=== PATIENT | female | born 1980 | race Caucasian/White ===

== ENCOUNTER 2017-10-19 16:27 | Emergency (ER) | payer OTHER ==
[2017-10-19] MEDS ORDERED: SOD CHLORIDE 0.9% 1,000 ML IV (17:12)
[2017-10-19] MEDS ORDERED: LIDOCAINE/MYLANTA 40 ML BTL PO (17:12)
[2017-10-19] MEDS ORDERED: FAMOTIDINE 20 MG INJ IV (17:12)
[2017-10-19] MEDS ORDERED: ONDANSETRON 4 MG INJ IV (17:12)
== END 2017-10-19 17:45 | disposition home or self-care (01) ==
LOC: FTE 16:27
DX: R19.7 Diarrhea, unspecified (principal); R11.2 Nausea with vomiting, unspecified
CPT/HCPCS: 99283; J7030

== ENCOUNTER 2018-03-25 23:50 | Emergency (ER) | payer OTHER | END 2018-03-26 04:30 | disposition home or self-care (01) | LOC: FTE 23:50 | DX: F41.9 Anxiety disorder, unspecified (principal); I10 Essential (primary) hypertension | CPT/HCPCS: 93005; 99283-25 ==

== ENCOUNTER 2018-07-03 20:14 | Emergency (ER) | payer OTHER ==
[2018-07-03] MEDS: ACETAMINOPHEN 325 MG TAB PO (23:16)
[2018-07-03 23:27] LABS: ADD MAN DIFF? NO
[2018-07-03 23:28] LABS: BASOPHILS % 0.4 % (0.0-2.0); EOSINOPHILS # 0.2 10^3/ul (0.0-0.5); EOSINOPHILS % 1.6 % (0.0-7.0); HEMOGLOBIN 12.7 g/dl (12.0-16.0); LYMPHOCYTES # 2.5 10^3/ul (0.8-2.9); LYMPHOCYTES % 23.4 % (15.0-51.0); MEAN CORPUSCULAR HEMOGLOBIN 30.9 pg (29.0-33.0); MEAN CORPUSCULAR HGB CONC 33.4 g/dl (32.0-37.0); MEAN CORPUSCULAR VOLUME 92.5 fl (82.0-101.0); MEAN PLATELET VOLUME 9.3 fl (7.4-10.4); MONOCYTE # 0.7 10^3/ul (0.3-0.9); MONOCYTES % 6.7 % (0.0-11.0); NEUTROPHIL # 7.1 10^3/ul (1.6-7.5); NEUTROPHILS % 67.3 % (39.0-77.0); PLATELET COUNT 229 10^3/UL (140-415); RED BLOOD COUNT 4.11 10^6/ul (4.20-5.40)
[2018-07-03 23:28] LABS: WHITE BLOOD COUNT 10.6 10^3/ul (4.8-10.8)
[2018-07-03 23:47] LABS: ADD UMIC YES; UR ASCORBIC ACID NEGATIVE (NEGATIVE); UR BILIRUBIN (Dip) NEGATIVE (NEGATIVE); UR BLOOD (Dip) 1+ mg/dL (NEGATIVE); UR CLARITY CLOUDY (CLEAR); UR COLOR YELLOW (YELLOW); UR GLUCOSE (Dip) NEGATIVE (NEGATIVE); UR KETONES (Dip) NEGATIVE (NEGATIVE); UR LEUKOCYTE ESTERASE (Dip) 1+ Leu/ul (NEGATIVE); UR MUCUS FEW /HPF (NONE SEEN); UR NITRITE (Dip) NEGATIVE (NEGATIVE); UR RBC 4 /HPF (0-5); UR SPECIFIC GRAVITY (Dip) 1.021 (1.003-1.030); UR SQUAMOUS EPITHELIAL CELL MANY /HPF (FEW); UR TOTAL PROTEIN (Dip) NEGATIVE (NEGATIVE); UR UROBILINOGEN (Dip) NEGATIVE (NEGATIVE); UR WBC 53 /HPF (0-5)
[2018-07-03 23:49] LABS: ALANINE AMINOTRANSFERASE 15 IU/L (13-69); ALBUMIN 4.3 g/dl (3.3-4.9); ALBUMIN/GLOBULIN RATIO 1.43; ALKALINE PHOSPHATASE 56 IU/L (42-121); ANION GAP 12 (5-13); ASPARTATE AMINO TRANSFERASE 14 IU/L (15-46); BILIRUBIN,INDIRECT 0.4 mg/dl (0-1.1); BILIRUBIN,TOTAL 0.4 mg/dl (0.2-1.3); BLOOD UREA NITROGEN 10 mg/dl (7-20); CALCIUM 9.4 mg/dl (8.4-10.2); CARBON DIOXIDE 27 mmol/L (21-31); CHLORIDE 101 mmol/L (97-110); CREATININE 0.48 mg/dl (0.44-1.00); Estimated GFR > 60 mL/min (>60); GLUCOSE 98 mg/dl (70-220); LIPASE 48 U/L (23-300); POTASSIUM 4.1 mmol/L (3.5-5.1); SODIUM 140 mmol/L (135-144); TOTAL PROTEIN 7.3 g/dl (6.1-8.1)
== END 2018-07-04 01:21 | disposition home or self-care (01) ==
LOC: FTE 07-04 01:21
DX: O23.41 Unspecified infection of urinary tract in pregnancy, first trimester (principal); O10.011 Pre-existing essential hypertension complicating pregnancy, first trimester; R10.2 Pelvic and perineal pain; Z3A.11 11 weeks gestation of pregnancy
CPT/HCPCS: 36415; 76801; 80053; 81001; 83690; 84702; 85025; 86900; 86901; 87086; 99284-25

== ENCOUNTER 2018-10-25 03:53 | Inpatient (IN) | payer OTHER ==
[2018-10-25 04:36] LABS: ADD MAN DIFF? NO
[2018-10-25 04:40] LABS: BASOPHILS % 0.2 % (0.0-2.0); EOSINOPHILS # 0.1 10^3/ul (0.0-0.5); HEMATOCRIT 33.7 % (37.0-47.0); HEMOGLOBIN 11.4 g/dl (12.0-16.0); LYMPHOCYTES # 2.1 10^3/ul (0.8-2.9); MEAN CORPUSCULAR HGB CONC 33.8 g/dl (32.0-37.0); MEAN CORPUSCULAR VOLUME 94.7 fl (82.0-101.0); MEAN PLATELET VOLUME 9.7 fl (7.4-10.4); MONOCYTE # 0.8 10^3/ul (0.3-0.9); MONOCYTES % 6.3 % (0.0-11.0); NEUTROPHIL # 8.9 10^3/ul (1.6-7.5); NEUTROPHILS % 74.2 % (39.0-77.0); PLATELET COUNT 195 10^3/UL (140-415); RED BLOOD COUNT 3.56 10^6/ul (4.20-5.40); RED CELL DISTRIBUTION WIDTH 13.4 % (11.5-14.5)
[2018-10-25 04:55] LABS: ADD UMIC YES; UR ASCORBIC ACID 40 mg/dL (NEGATIVE); UR BACTERIA MANY /HPF (NONE SEEN); UR BILIRUBIN (Dip) NEGATIVE (NEGATIVE); UR BLOOD (Dip) NEGATIVE (NEGATIVE); UR CALCIUM OXALATE CRYSTAL MODERATE /HPF (NONE SEEN); UR CLARITY CLOUDY (CLEAR); UR COLOR AMBER (YELLOW); UR GLUCOSE (Dip) NEGATIVE (NEGATIVE); UR KETONES (Dip) 1+ mg/dL (NEGATIVE); UR LEUKOCYTE ESTERASE (Dip) NEGATIVE Leu/ul (NEGATIVE); UR MUCUS FEW /HPF (NONE SEEN); UR NITRITE (Dip) NEGATIVE (NEGATIVE); UR RBC 4 /HPF (0-5); UR SPECIFIC GRAVITY (Dip) 1.036 (1.003-1.030); UR SQUAMOUS EPITHELIAL CELL MANY /HPF (FEW); UR TOTAL PROTEIN (Dip) 1+ mg/dl (NEGATIVE); UR UROBILINOGEN (Dip) NEGATIVE (NEGATIVE); UR WBC 7 /HPF (0-5)
[2018-10-25] MEDS: LACTATED RINGER'S 1,000 ML IV ×3 (06:49→16:21)
[2018-10-25] MEDS: CEFAZOLIN 2 GM/50 ML (PMX) 50 ML IVPB ×3 (07:02→22:06)
[2018-10-25] MEDS: HYDROCODONE/APAP (5/325) TAB PO (07:02)
[2018-10-25] MEDS ORDERED: BUTORPHANOL 2 MG INJ IV (08:30)
[2018-10-25] MEDS: PRENATAL VITAMIN PO (09:56)
[2018-10-25] MEDS: FERROUS SULFATE (EC) 325 MG TAB PO (09:56)
[2018-10-25] MEDS: BETAMET NA PHOS/AC(6 MG/ML) 2 ML INJ SYG IM (10:16)
[2018-10-26] MEDS: CEFAZOLIN 2 GM/50 ML (PMX) 50 ML IVPB (06:13)
[2018-10-26] MEDS: LACTATED RINGER'S 1,000 ML IV ×2 (07:42)
[2018-10-26] MEDS: FERROUS SULFATE (EC) 325 MG TAB PO (09:25)
[2018-10-26] MEDS: PRENATAL VITAMIN PO (09:25)
[2018-10-26 10:00] LABS: ADD MAN DIFF? NO; BASOPHILS % 0.2 % (0.0-2.0); EOSINOPHILS # 0.1 10^3/ul (0.0-0.5); EOSINOPHILS % 0.5 % (0.0-7.0); HEMATOCRIT 34.1 % (37.0-47.0); HEMOGLOBIN 11.4 g/dl (12.0-16.0); LYMPHOCYTES # 1.9 10^3/ul (0.8-2.9); LYMPHOCYTES % 14.5 % (15.0-51.0); MEAN CORPUSCULAR HEMOGLOBIN 32.1 pg (29.0-33.0); MEAN CORPUSCULAR HGB CONC 33.4 g/dl (32.0-37.0); MEAN CORPUSCULAR VOLUME 96.1 fl (82.0-101.0); MEAN PLATELET VOLUME 9.8 fl (7.4-10.4); MONOCYTE # 0.4 10^3/ul (0.3-0.9); MONOCYTES % 3.2 % (0.0-11.0); NEUTROPHIL # 10.3 10^3/ul (1.6-7.5); NEUTROPHILS % 80.1 % (39.0-77.0); PLATELET COUNT 190 10^3/UL (140-415); RED BLOOD COUNT 3.55 10^6/ul (4.20-5.40); RED CELL DISTRIBUTION WIDTH 13.4 % (11.5-14.5)
[2018-10-26 10:00] LABS: WHITE BLOOD COUNT 12.8 10^3/ul (4.8-10.8)
[2018-10-26] MEDS: BETAMET NA PHOS/AC(6 MG/ML) 2 ML INJ SYG IM (10:11)
[2018-10-26 10:29] LABS: ALANINE AMINOTRANSFERASE 15 IU/L (13-69); ALBUMIN 3.3 g/dl (3.3-4.9); ALBUMIN/GLOBULIN RATIO 1.06; ALKALINE PHOSPHATASE 60 IU/L (42-121); ANION GAP 6 (5-13); ASPARTATE AMINO TRANSFERASE 15 IU/L (15-46); BILIRUBIN,INDIRECT 0.3 mg/dl (0-1.1); BILIRUBIN,TOTAL 0.3 mg/dl (0.2-1.3); BLOOD UREA NITROGEN 6 mg/dl (7-20); CALCIUM 8.6 mg/dl (8.4-10.2); CARBON DIOXIDE 24 mmol/L (21-31); CHLORIDE 106 mmol/L (97-110); CREATININE 0.46 mg/dl (0.44-1.00); Estimated GFR > 60 mL/min (>60); GLUCOSE 157 mg/dl (70-220); LACTATE DEHYDROGENASE 330 IU/L (313-618); POTASSIUM 3.5 mmol/L (3.5-5.1); SODIUM 136 mmol/L (135-144); TOTAL PROTEIN 6.4 g/dl (6.1-8.1); URIC ACID 2.8 mg/dl (3.1-7.9)
[2018-10-26] MEDS ORDERED: LACTATED RINGER'S 1,000 ML IV (10:47)
[2018-10-26] MEDS ORDERED: BUTORPHANOL 2 MG INJ IV ×2 (11:00)
[2018-10-26] MEDS ORDERED: AMPICILLIN 2 GM/NS (PMX) 100 ML IV (11:00)
[2018-10-26] MEDS ORDERED: OXYTOCIN 30 UNITS/LR 500 ML IV ×3 (11:00)
[2018-10-26] MEDS ORDERED: CARBOPROST 250 MCG INJ IM (11:00)
[2018-10-26] MEDS ORDERED: MINERAL OIL LIGHT 10 ML VIAL TOP (11:00)
[2018-10-26] MEDS ORDERED: METHYLERGONOVINE 0.2 MG INJ IM (11:00)
[2018-10-26] MEDS ORDERED: IBUPROFEN 600 MG TAB PO (11:00)
[2018-10-26] MEDS ORDERED: LIDOCAINE 1% (MPF) 30 ML INJ INJ (11:00)
[2018-10-26] MEDS ORDERED: MISOPROSTOL 200 MCG TAB PR (11:00)
[2018-10-26 12:40] LABS: HEPATITIS B SURFACE ANTIGEN NEGATIVE (NEGATIVE)
[2018-10-26 14:23] LABS: CREATININE,URINE RANDOM 46.33 mg/dl (20-320); PROTEIN/CREAT RATIO 0.28 RATIO
[2018-10-26] MEDS ORDERED: AMPICILLIN 1 GM/NS (PMX) 50 ML IV (15:00)
[2018-10-26 20:30] LABS: RAPID PLASMA REAGIN NONREACTIVE (NR)
== END 2018-10-26 15:05 | disposition home or self-care (01) | DRG 833 ==
LOC: OBT 03:53 → L-D 03:55 → OBT 07:55 → L-D 07:55
DX: O26.892 Other specified pregnancy related conditions, second trimester (principal); N20.0 Calculus of kidney; R03.0 Elevated blood-pressure reading, without diagnosis of hypertension; O09.522 Supervision of elderly multigravida, second trimester; Z3A.27 27 weeks gestation of pregnancy
CPT/HCPCS: 76775; 76815; 76817; 76818; 80053; 81001; 81003; 82570; 83615; 84560; 85025; 86592; 87086; 87340; 96374

== ENCOUNTER 2018-11-17 17:40 | Inpatient (IN) | payer OTHER ==
[2018-11-17 18:26] LABS: ADD UMIC YES; UR ASCORBIC ACID NEGATIVE (NEGATIVE); UR BACTERIA FEW /HPF (NONE SEEN); UR BILIRUBIN (Dip) NEGATIVE (NEGATIVE); UR BLOOD (Dip) NEGATIVE (NEGATIVE); UR CLARITY CLOUDY (CLEAR); UR COLOR YELLOW (YELLOW); UR GLUCOSE (Dip) NEGATIVE (NEGATIVE); UR KETONES (Dip) TRACE mg/dL (NEGATIVE); UR LEUKOCYTE ESTERASE (Dip) NEGATIVE Leu/ul (NEGATIVE); UR NITRITE (Dip) NEGATIVE (NEGATIVE); UR RBC 1 /HPF (0-5); UR SPECIFIC GRAVITY (Dip) 1.017 (1.003-1.030); UR SQUAMOUS EPITHELIAL CELL MANY /HPF (FEW); UR TOTAL PROTEIN (Dip) NEGATIVE (NEGATIVE); UR UROBILINOGEN (Dip) NEGATIVE (NEGATIVE); UR WBC 3 /HPF (0-5)
[2018-11-17 21:09] LABS: AMPHETAMINE/METHAMPHETAMINE Negative (NEGATIVE); BARBITURATES Negative (NEGATIVE); BENZODIAZEPINES Negative (NEGATIVE); CANNABINOIDS Negative (NEGATIVE); COCAINE Negative (NEGATIVE); OPIATES Negative (NEGATIVE)
[2018-11-17] MEDS: ACETAMINOPHEN 500 MG TAB PO (22:58)
[2018-11-17] MEDS: RANITIDINE 150 MG TAB PO (23:11)
[2018-11-18] MEDS ORDERED: RANITIDINE 150 MG TAB PO (21:00)
== END 2018-11-18 11:00 | disposition home or self-care (01) | DRG 833 ==
LOC: OBT 17:40 → L-D 17:41 → OBT 19:00 → L-D 19:00
DX: O60.03 Preterm labor without delivery, third trimester (principal); Z3A.30 30 weeks gestation of pregnancy
CPT/HCPCS: 76815; 76817; 76818; 80307; 81001; 87086